=== PATIENT | female | born 1985 | race Caucasian/White ===

== ENCOUNTER → 2016-09-12 | Outpatient (CLI) | payer BC ==
[~2016-09-12] MED LIST: AMOXICILLIN; AZO1 STRIP; BACTRIM DS TABL1 TA1 PO; BIRTH CONTROL PILL PO; CIPRO PO; GLUCOPHAGE500 M1 PO; IBUPROFEN800 MG PO; PEPCID AC20 M2 PO; PRILOSEC40 MG PO; PYRIDIUM PO; SYNTHROID PO; TYLENOL #3 PO; ZOFRAN PO
--- NOTE | ~2016-09-12 | US128 ---
[id number] [facility] [address] [place], [place] [address] [id number] O MR#: [id number] Acc #: [id number] NAME: SUKHDEV HE : 1985 SEX: F STUDY DATE/TIME: 09/12/2016 14:25 UNIT: [facility]US ROOM: STUDY DESCRIPTION: Thyroid Attending Physician: Pricila Adams M.D. Referring Physician: Pricila Adams M.D. Ordering Physician: Pricila Adams M.D. Primary Care Physician: Pricila Adams M.D. MEDICAL IMAGING REPORT This report is preliminary unless electronic signature is present EXAM Ultrasound thyroid gland. INDICATION Thyroid nodules. This patient has a history of thyroid nodules dating back to June of 2014. FNA was performed of the left thyroid nodule on July 26, 2014. TECHNIQUE Andres-scale and color Doppler sonographic images were obtained through the thyroid gland. FINDINGS Thyroid gland is on the small side. Right lobe measures 2.6 x 3.9 x 2.0 cm. Left lobe measures 2.6 x 3.7 x 1.2 cm and the isthmus measures about 7 mm in thickness. There are bilateral thyroid nodules. Overall thyroid parenchyma is extremely heterogeneous. This makes measurement of discrete nodules somewhat difficult. [employer] measures a hypoechoic nodule posterior to the thyroid gland measuring up to 0.8 x 1.2 x 0.5 cm, and I think this actually could reflect a parathyroid adenoma. Within the left lobe of the thyroid gland, hypoechoic nodule is measured which measures up to 1.4 x 1.2 x 0.9 cm. I think given differences in technique, this actually has really not significantly changed when compared to the exam from June 2014, and in fact, this nodule has been previously sampled. Correlation with prior biopsy results is recommended. IMPRESSION 1. Markedly heterogeneous thyroid parenchyma. Finding is nonspecific but can be seen in the setting of Fili's thyroiditis. Please correlate with clinical presentation. 2. There is a hypoechoic nodule within the left lobe of the thyroid gland which I do think is really significantly increased in size when compared to an exam from June 2014 when allowance is made for differences in technique. This nodule has been previously sampled and correlation with those biopsy results is recommended. 3. [employer] Manager measures an additional hypoechoic, ovoid nodule posterior to the thyroid gland, within the right lobe of the thyroid gland. I think this actually may reflect a parathyroid adenoma rather than a true thyroid nodule. Correlation with patient's laboratory values is suggested. Sestamibi scan may be helpful for additional evaluation. Dictated by... Amber Mares M.D. THIS IS AN ELECTRONICALLY VERIFIED REPORT Amber Mares M.D. at 09/16/2016 8:02 AM ANALY/romana TD: 09/12/2016 18:00 JOB #: [id number] MEDICAL IMAGING REPORT Page 1 of 1 COPY
== END | disposition home or self-care (01) ==
LOC: CGUS 13:41
DX: E04.1 Nontoxic single thyroid nodule (principal)
CPT/HCPCS: 76536